=== PATIENT | female | born 2000 | race Two or more races ===

== ENCOUNTER → 2024-10-28 | Outpatient (CLI) | payer MEDICAID, SELFPAY | END | disposition home or self-care (01) | LOC: SWHD 10:34 | PROVIDERS: PCP Registered Nurse; Referring Provider Registered Nurse; Visit Provider Surgery | DX: L02.818 Cutaneous abscess of other sites (principal); L89.103 Pressure ulcer of unspecified part of back, stage 3; Z87.898 Personal history of other specified conditions; L73.2 Hidradenitis suppurativa; L92.8 Other granulomatous disorders of the skin and subcutaneous tissue | CPT/HCPCS: 99214; A9270; G0463 ==

== ENCOUNTER → 2024-11-12 | Outpatient (CLI) | payer MEDICAID, SELFPAY | END | disposition home or self-care (01) | PROVIDERS: PCP Registered Nurse; Referring Provider Registered Nurse; Visit Provider Student in an Organized Health Care Education/Training Program | DX: L89.103 Pressure ulcer of unspecified part of back, stage 3 (principal); L02.818 Cutaneous abscess of other sites; T24.201A Burn of second degree of unspecified site of right lower limb, except ankle and foot, initial encounter; Z87.898 Personal history of other specified conditions; L73.2 Hidradenitis suppurativa; L92.8 Other granulomatous disorders of the skin and subcutaneous tissue | CPT/HCPCS: 11042; A9270 ==

== ENCOUNTER → 2024-12-03 | Outpatient (CLI) | payer MEDICAID, SELFPAY | END | disposition home or self-care (01) | LOC: SWHD 14:30 | PROVIDERS: PCP Registered Nurse; Referring Provider Registered Nurse; Visit Provider Student in an Organized Health Care Education/Training Program | DX: L89.103 Pressure ulcer of unspecified part of back, stage 3 (principal); L02.818 Cutaneous abscess of other sites; T24.201A Burn of second degree of unspecified site of right lower limb, except ankle and foot, initial encounter; Z87.898 Personal history of other specified conditions; L73.2 Hidradenitis suppurativa; L92.8 Other granulomatous disorders of the skin and subcutaneous tissue | CPT/HCPCS: 99213; A9270; G0463 ==

== ENCOUNTER → 2024-12-10 | Outpatient (CLI) | payer MEDICAID, SELFPAY | END | disposition home or self-care (01) | LOC: SWHD 14:11 | PROVIDERS: PCP Registered Nurse; Referring Provider Registered Nurse; Visit Provider Student in an Organized Health Care Education/Training Program | DX: L89.103 Pressure ulcer of unspecified part of back, stage 3 (principal); L02.818 Cutaneous abscess of other sites; T24.201A Burn of second degree of unspecified site of right lower limb, except ankle and foot, initial encounter; Z87.898 Personal history of other specified conditions; L73.2 Hidradenitis suppurativa; L92.8 Other granulomatous disorders of the skin and subcutaneous tissue | CPT/HCPCS: 99214; A9270; G0463 ==

== ENCOUNTER → 2024-12-24 | Outpatient (CLI) | payer MEDICAID, SELFPAY | END | disposition home or self-care (01) | LOC: SWHD 15:06 | PROVIDERS: PCP Registered Nurse; Referring Provider Registered Nurse; Visit Provider Student in an Organized Health Care Education/Training Program | DX: L89.103 Pressure ulcer of unspecified part of back, stage 3 (principal); L02.818 Cutaneous abscess of other sites; T24.201A Burn of second degree of unspecified site of right lower limb, except ankle and foot, initial encounter; L73.2 Hidradenitis suppurativa; L92.8 Other granulomatous disorders of the skin and subcutaneous tissue; Z87.898 Personal history of other specified conditions | CPT/HCPCS: 99214; A9270; G0463 ==

== ENCOUNTER → 2025-01-07 | Outpatient (CLI) | payer MEDICAID, SELFPAY | END | disposition home or self-care (01) | LOC: SWHD 14:49 | PROVIDERS: PCP Registered Nurse; Referring Provider Registered Nurse; Visit Provider Student in an Organized Health Care Education/Training Program | DX: L89.103 Pressure ulcer of unspecified part of back, stage 3 (principal); L02.818 Cutaneous abscess of other sites; L73.2 Hidradenitis suppurativa; L92.8 Other granulomatous disorders of the skin and subcutaneous tissue; Z87.898 Personal history of other specified conditions | CPT/HCPCS: 99214; G0463 ==

== ENCOUNTER → 2025-01-29 | Outpatient (CLI) | payer MEDICAID, SELFPAY | END | disposition home or self-care (01) | LOC: SWHD 14:28 | PROVIDERS: PCP Registered Nurse; Referring Provider Registered Nurse; Visit Provider Physician Assistant | DX: L89.103 Pressure ulcer of unspecified part of back, stage 3 (principal); T24.211A Burn of second degree of right thigh, initial encounter; L02.818 Cutaneous abscess of other sites; L73.2 Hidradenitis suppurativa; L92.8 Other granulomatous disorders of the skin and subcutaneous tissue; Z87.898 Personal history of other specified conditions | CPT/HCPCS: 99213; G0463 ==

== ENCOUNTER → 2025-02-10 | Outpatient (CLI) | payer MEDICAID, SELFPAY | END | disposition home or self-care (01) | LOC: SWHD 13:40 | PROVIDERS: PCP Registered Nurse; Referring Provider Registered Nurse; Visit Provider Student in an Organized Health Care Education/Training Program | DX: L02.818 Cutaneous abscess of other sites (principal); L73.2 Hidradenitis suppurativa; L92.8 Other granulomatous disorders of the skin and subcutaneous tissue; Z87.898 Personal history of other specified conditions | CPT/HCPCS: 99214; A9270; G0463 ==

== ENCOUNTER → 2025-03-03 | Outpatient (CLI) | payer MEDICAID, SELFPAY | END | disposition home or self-care (01) | LOC: SWHD 14:40 | PROVIDERS: PCP Registered Nurse; Referring Provider Registered Nurse; Visit Provider Student in an Organized Health Care Education/Training Program | DX: L02.818 Cutaneous abscess of other sites (principal); L73.2 Hidradenitis suppurativa; L92.8 Other granulomatous disorders of the skin and subcutaneous tissue; Z87.898 Personal history of other specified conditions | CPT/HCPCS: 99214; G0463 ==

== ENCOUNTER → 2025-04-16 | Outpatient (CLI) | payer MEDICAID, SELFPAY | END | disposition home or self-care (01) | LOC: SWHD 13:17 | PROVIDERS: PCP Registered Nurse; Referring Provider Registered Nurse; Visit Provider Surgery | DX: L02.818 Cutaneous abscess of other sites (principal); T24.211A Burn of second degree of right thigh, initial encounter; L73.2 Hidradenitis suppurativa; L92.8 Other granulomatous disorders of the skin and subcutaneous tissue; Z87.898 Personal history of other specified conditions | CPT/HCPCS: 99215; G0463 ==

== ENCOUNTER → 2025-05-06 | Outpatient (CLI) | payer MEDICAID, SELFPAY | END | disposition home or self-care (01) | LOC: SWHD 13:09 | PROVIDERS: PCP Registered Nurse; Referring Provider Registered Nurse; Visit Provider Student in an Organized Health Care Education/Training Program | DX: L02.818 Cutaneous abscess of other sites (principal); T24.211A Burn of second degree of right thigh, initial encounter; L73.2 Hidradenitis suppurativa; L92.8 Other granulomatous disorders of the skin and subcutaneous tissue; Z87.898 Personal history of other specified conditions | CPT/HCPCS: 99213; G0463 ==

== ENCOUNTER → 2025-06-10 | Outpatient (CLI) | payer MEDICAID, SELFPAY | END | disposition home or self-care (01) | LOC: SWHD 13:17 | PROVIDERS: PCP Registered Nurse; Referring Provider Registered Nurse; Visit Provider Student in an Organized Health Care Education/Training Program | DX: L02.818 Cutaneous abscess of other sites (principal); T24.211A Burn of second degree of right thigh, initial encounter; L73.2 Hidradenitis suppurativa; L92.8 Other granulomatous disorders of the skin and subcutaneous tissue; Z87.898 Personal history of other specified conditions | CPT/HCPCS: 99214; A9270; G0463 ==

== ENCOUNTER → 2025-07-01 | Outpatient (CLI) | payer MEDICAID, SELFPAY | END | disposition home or self-care (01) | LOC: SWHD 13:17 | PROVIDERS: PCP Registered Nurse; Referring Provider Registered Nurse; Visit Provider Student in an Organized Health Care Education/Training Program | DX: T24.211A Burn of second degree of right thigh, initial encounter (principal); L02.212 Cutaneous abscess of back [any part, except buttock and flank]; L73.2 Hidradenitis suppurativa; L92.8 Other granulomatous disorders of the skin and subcutaneous tissue; Z87.898 Personal history of other specified conditions | CPT/HCPCS: 99214; G0463 ==

== ENCOUNTER → 2025-07-08 | Outpatient (CLI) | payer MEDICAID, SELFPAY | END | disposition home or self-care (01) | LOC: SWHD 14:00 | PROVIDERS: PCP Registered Nurse; Referring Provider Registered Nurse; Visit Provider Student in an Organized Health Care Education/Training Program | DX: T24.211A Burn of second degree of right thigh, initial encounter (principal); L02.212 Cutaneous abscess of back [any part, except buttock and flank]; S21.201A Unspecified open wound of right back wall of thorax without penetration into thoracic cavity, initial encounter; S21.209A Unspecified open wound of unspecified back wall of thorax without penetration into thoracic cavity, initial encounter; X58.XXXA Exposure to other specified factors, initial encounter; L73.2 Hidradenitis suppurativa; L92.8 Other granulomatous disorders of the skin and subcutaneous tissue; Z87.898 Personal history of other specified conditions | CPT/HCPCS: 99213; A9270; G0463 ==

== ENCOUNTER → 2025-07-29 | Outpatient (CLI) | payer MEDICAID, SELFPAY | END | disposition home or self-care (01) | LOC: SWHD 13:56 | PROVIDERS: PCP Registered Nurse; Referring Provider Registered Nurse; Visit Provider Student in an Organized Health Care Education/Training Program | DX: T24.211A Burn of second degree of right thigh, initial encounter (principal); L02.212 Cutaneous abscess of back [any part, except buttock and flank]; S21.201A Unspecified open wound of right back wall of thorax without penetration into thoracic cavity, initial encounter; S21.209A Unspecified open wound of unspecified back wall of thorax without penetration into thoracic cavity, initial encounter; X58.XXXA Exposure to other specified factors, initial encounter; L73.2 Hidradenitis suppurativa; L92.8 Other granulomatous disorders of the skin and subcutaneous tissue; Z87.898 Personal history of other specified conditions | CPT/HCPCS: 99214; A9270; G0463 ==

== ENCOUNTER → 2025-08-27 | Outpatient (CLI) | payer MEDICAID, SELFPAY | END | disposition home or self-care (01) | LOC: SWHD 14:03 | PROVIDERS: PCP Registered Nurse; Referring Provider Registered Nurse; Visit Provider Student in an Organized Health Care Education/Training Program | DX: T24.211A Burn of second degree of right thigh, initial encounter (principal); L02.212 Cutaneous abscess of back [any part, except buttock and flank]; S21.201A Unspecified open wound of right back wall of thorax without penetration into thoracic cavity, initial encounter; S21.209A Unspecified open wound of unspecified back wall of thorax without penetration into thoracic cavity, initial encounter; X58.XXXA Exposure to other specified factors, initial encounter; L73.2 Hidradenitis suppurativa; L92.8 Other granulomatous disorders of the skin and subcutaneous tissue; Z87.898 Personal history of other specified conditions | CPT/HCPCS: 99214; A9270; G0463 ==

== ENCOUNTER → 2025-10-15 | Outpatient (CLI) | payer MEDICAID, SELFPAY | END | disposition home or self-care (01) | LOC: SWHD 09:35 | PROVIDERS: PCP Registered Nurse; Referring Provider Registered Nurse; Visit Provider Surgery | DX: S21.201A Unspecified open wound of right back wall of thorax without penetration into thoracic cavity, initial encounter (principal); S21.209A Unspecified open wound of unspecified back wall of thorax without penetration into thoracic cavity, initial encounter; X58.XXXA Exposure to other specified factors, initial encounter; L73.2 Hidradenitis suppurativa; Z87.898 Personal history of other specified conditions; L02.212 Cutaneous abscess of back [any part, except buttock and flank]; L92.8 Other granulomatous disorders of the skin and subcutaneous tissue | CPT/HCPCS: 99213; A9270; G0463 ==

== ENCOUNTER → 2025-11-05 | Outpatient (CLI) | payer MEDICAID, SELFPAY | END | disposition home or self-care (01) | LOC: SWHD 13:47 | PROVIDERS: PCP Registered Nurse; Referring Provider Registered Nurse; Visit Provider Surgery | DX: S21.201A Unspecified open wound of right back wall of thorax without penetration into thoracic cavity, initial encounter (principal); S21.209A Unspecified open wound of unspecified back wall of thorax without penetration into thoracic cavity, initial encounter; X58.XXXA Exposure to other specified factors, initial encounter; L73.2 Hidradenitis suppurativa; Z87.898 Personal history of other specified conditions; L02.212 Cutaneous abscess of back [any part, except buttock and flank]; L92.8 Other granulomatous disorders of the skin and subcutaneous tissue | CPT/HCPCS: 99214; A9270; G0463 ==